=== PATIENT | female | born 1980 | race African-American/Black ===

== ENCOUNTER 2020-06-19 08:00 | Inpatient (IN) | payer BC ==
[2020-06-23 06:46] VITALS: BMI 33.4
[2020-06-23] MEDS ORDERED: CITRIC ACID/SODIUM CITRATE 30 ML UNIT-DOSE CUP PO ONE (07:15)
[2020-06-23] MEDS ORDERED: BENZOCAINE 28 GM HEMORRHOIDAL OINTMENT PR PRN (07:16)
[2020-06-23] MEDS ORDERED: diphenhydrAMINE HCL 25 MG CAPSULE (FP) PO PRN (07:16)
[2020-06-23] MEDS ORDERED: BENZOCAINE 20% 57 GM BOTTLE TP PRN (07:16)
[2020-06-23] MEDS ORDERED: WITCH HAZEL 50% (TUCKS) 40 PAD/JAR PAD TP PRN (07:16)
[2020-06-23] MEDS ORDERED: METHYLERGONOVINE MALEATE 0.2 MG/1 ML AMP IM PRN (07:16)
[2020-06-23] MEDS: ELECTROLYTE-148 SOLN 1,000 ML IV SCH (07:30)
[2020-06-23] MEDS ORDERED: OXYTOCIN 20 UNITS in 0.9% NS 20 UNIT/1,000 ML INFUS.BAG IV ONE ×2 (08:10→10:47)
[2020-06-23] MEDS ORDERED: ONDANSETRON 4 MG/2 ML VIAL IVPUSH PRN (08:11)
[2020-06-23] MEDS ORDERED: morphine SULFATE/PF 0.5 MG/ML (2cc Syringe - QUVA) ONE (08:17)
[2020-06-23] MEDS ORDERED: KETOROLAC TROMETHAMINE 30 MG/1 ML VIAL ONE (08:18)
[2020-06-23] MEDS ORDERED: DEXAMETHASONE SOD PHOSPHATE 4 MG/1 ML VIAL ONE (08:18)
[2020-06-23] MEDS ORDERED: PHENYLEPHRINE HCL 10 MG/1 ML SINGLE DOSE VIAL ONE (08:18)
[2020-06-23 08:28] LABS: HIV INTERPRETATION NEGATIVE (NEGATIVE)
[2020-06-23] MEDS ORDERED: ceFAZolin SODIUM 1 GM VIAL ONE (08:30)
[2020-06-23] MEDS ORDERED: SUCCINYLCHOLINE CHLORIDE 200 MG/10 ML SYRINGE ONE (08:47)
[2020-06-23 09:29] LABS: CORD BASE EXCESS -4.9 mmol/L (0-2); CORD HCO3 22.4 mmHg (20-29); CORD PCO2 50.1 mmHg (30-78); CORD pH 7.268 (7.14-7.44)
[2020-06-23 09:31] LABS: CORD HCO3 23.6 mmHg (20-29); CORD PCO2 71.6 mmHg (30-78); CORD pH 7.136 (7.14-7.44)
[2020-06-23] MEDS ORDERED: IBUPROFEN 800 MG/8 ML IJ IVPB ONE (10:38)
[2020-06-23] MEDS: IBUPROFEN 800 MG/8 ML IJ IVPB PRN ×2 (10:45→18:21)
[2020-06-23] MEDS: OXYTOCIN 20 UNITS in 0.9% NS 20 UNIT/1,000 ML INFUS.BAG IV SCH ×2 (10:53→18:20)
[2020-06-24] MEDS: IBUPROFEN 800 MG/8 ML IJ IVPB PRN (02:54)
[2020-06-24] MEDS: OXYTOCIN 20 UNITS in 0.9% NS 20 UNIT/1,000 ML INFUS.BAG IV SCH ×2 (02:54→07:50)
[2020-06-24] MEDS ORDERED: BISACODYL 10 MG SUPP.RECT PR PRN (07:16)
[2020-06-24] MEDS ORDERED: oxyCODONE HCL 5 MG TABLET PO PRN ×2 (07:16)
[2020-06-24] MEDS: ELECTROLYTE-148 SOLN 1,000 ML IV SCH (07:49)
[2020-06-24 08:44] LABS: HEMATOCRIT 25.2 % (32.4-45.2); HEMOGLOBIN 8.3 GM/dL (10.7-15.3); MCH 27.9 pg (25.7-33.7); MCHC 32.9 g/dl (32.0-36.0); MEAN CELL VOLUME 84.8 fl (80-96); PLATELET COUNT 153 K/MM3 (134-434); RBC 2.97 M/mm3 (3.60-5.2); RDW 15.4 % (11.6-15.6); WHITE BLOOD COUNT 11.8 K/mm3 (4.0-10.0)
[2020-06-24] MEDS: SIMETHICONE 80 MG TAB.CHEW (FP) PO PRN ×3 (09:28→20:29)
[2020-06-24] MEDS: ACETAMINOPHEN 325 MG TABLET (FP) PO PRN ×3 (09:28→20:29)
[2020-06-24] MEDS: IBUPROFEN 600 MG TABLET (FP) PO PRN ×3 (09:29→20:28)
[2020-06-24] MEDS: FERROUS SO4 325 MG TABLET (FP) PO SCH (18:07)
[2020-06-25] MEDS: IBUPROFEN 600 MG TABLET (FP) PO PRN ×3 (00:19→13:35)
[2020-06-25] MEDS: ACETAMINOPHEN 325 MG TABLET (FP) PO PRN ×3 (00:19→13:36)
[2020-06-25] MEDS: SIMETHICONE 80 MG TAB.CHEW (FP) PO PRN ×3 (00:19→13:35)
[2020-06-25] MEDS: FERROUS SO4 325 MG TABLET (FP) PO SCH ×2 (09:26→13:35)
[2020-06-25 13:57] VITALS: BP 103/66; PULSE 81; TEMP 98.3
[2020-06-25] MEDS ORDERED: SENNOSIDES/DOCUSATE COMBO (SENNA PLUS) TABLET (UD) PO PRN (22:00)
== END 2020-06-25 13:50 | disposition home or self-care (01) | DRG 788 ==
LOC: JLDR 06-23 06:15 → J3W 06-23 11:00
PROVIDERS: ADMIT Obstetrics & Gynecology; ATTEND Obstetrics & Gynecology
PROC: 10D00Z1 Extraction of Products of Conception, Low, Open Approach (ICD-10-PCS; principal; 2020-06-23)
PROC: 0UB90ZZ Excision of Uterus, Open Approach (ICD-10-PCS; 2020-06-23)
DX: O34.219 Maternal care for unspecified type scar from previous cesarean delivery (principal); O69.81X0 Labor and delivery complicated by cord around neck, without compression, not applicable or unspecified; Z3A.39 39 weeks gestation of pregnancy; Z37.0 Single live birth; O34.13 Maternal care for benign tumor of corpus uteri, third trimester; D25.9 Leiomyoma of uterus, unspecified; Z98.890 Other specified postprocedural states
CPT/HCPCS: 36415; 36600; 82803; 85027; 87389; 88305-TC; 88307-TC

== ENCOUNTER 2020-07-11 10:35 | Emergency (ER) | payer BC ==
[2020-07-11 10:52] VITALS: BP 111/60; PULSE 78; TEMP 98.1; BMI 30.5
== END 2020-07-11 12:50 | disposition home or self-care (01) ==
LOC: JER 10:35 → JERFT 10:35
DX: M79.605 Pain in left leg (principal)
CPT/HCPCS: 93971-TC; 99284-25